=== PATIENT | male | born 1950 | race Caucasian/White ===

== ENCOUNTER 2016-06-30 05:55 | Day surgery (SDC) | payer MEDICARE ==
[~2016-06-30 05:55] MED LIST: ASA CHILDREN'S81 MG PO; COZAAR25 MG PO; CRESTOR10 MG PO; METAMUCIL POWD684 GM PO; MIRALAX17 GM PO; MIRAPEX0.125 MG PO; NITROSTAT0.4 MG SL; SINEMET 25/1001 TAB PO; VITAMIN B-121000 MCG PO; ZANTAC DPS150 MG PO
== END 2016-06-30 11:05 | disposition home or self-care (01) ==
DX: Z45.010 Encounter for checking and testing of cardiac pacemaker pulse generator [battery] (principal); R00.1 Bradycardia, unspecified; Z79.82 Long term (current) use of aspirin; Z79.899 Other long term (current) drug therapy; Z87.891 Personal history of nicotine dependence; Z90.49 Acquired absence of other specified parts of digestive tract